=== PATIENT | male | born 1955 | race Caucasian/White ===

== ENCOUNTER 2018-11-18 07:25 | Day surgery (SDC) | payer BC ==
[2018-11-16 10:28] VITALS: BMI 22.1
[~2018-11-18 07:25] MED LIST: LIDOCAINE 1% 20 ML VIAL (10MG/ML) FOR IV START INTRADERMA PRN
[2018-11-18 07:46] VITALS: RESP 16; TEMP 97
[2018-11-18] MEDS: LACTATED RINGERS 1,000 ML IV SCH ×3 (07:55→08:56)
[2018-11-18] MEDS ORDERED: LIDOCAINE 1% 20 ML VIAL (10MG/ML) FOR IV START INTRADERMA ONE (07:55)
[2018-11-18] MEDS ORDERED: PROPOFOL 10 MG/ML 20 ML VIAL IV ONE (08:59)
--- NOTE | 2018-11-18 09:23 | P.PCN ---
Date of Procedure: 11/18/18 Procedure(s) Performed: Procedure: Total colonoscopy. Preoperative diagnosis: Screening for neoplasia, patient has history of polyps. Postoperative diagnosis: Sigmoid diverticulosis with no evidence of acute diverticulitis, strictures, polyps or cancer. Preparation: HalfLytely prep. Sedation: Was provided by anesthesia. Brief clinical history: The patient is a 63-year-old male who is scheduled for this evaluation for screening for neoplasia because of history of polyps. His last exam was around 5 years ago. The patient has no abdominal complaints, bleeding or anemia. Procedure: With the patient on his left lateral decubitus position and after informed consent and adequate sedation, the perianal area was inspected and it did not show any fissures or fistulas. There were no masses felt on digital rectal examination. The Olympus CFH 190L video colonoscope was then inserted in the rectum in the usual fashion and advanced to the cecum. There were multiple diverticular orifices seen scattered in the sigmoid but I saw no evidence of acute diverticulitis or strictures. No polyps or tumors were seen. I retroflexed the endoscope in the rectum before the endoscope was withdrawn. The patient tolerated the procedure well. Plan: The patient was reassured. Discussed dietary measures. He will follow up with you as planned and I recommended repeat exam in 5 years.
[2018-11-18 09:25] VITALS: BP 111/71; PULSE 76
== END 2018-11-18 09:59 | disposition home or self-care (01) ==
LOC: ORWHC2ENDO 07:25
DX: Z12.11 Encounter for screening for malignant neoplasm of colon (principal); K57.30 Diverticulosis of large intestine without perforation or abscess without bleeding; Z86.010 Personal history of colon polyps; K21.9 Gastro-esophageal reflux disease without esophagitis; Z88.0 Allergy status to penicillin
CPT/HCPCS: J2704; G0105; 45378

== ENCOUNTER → 2021-05-29 | Outpatient (CLI) | payer BC ==
--- NOTE | 2021-05-30 00:55 | MR ---
EXAMINATION TYPE: MR shoulder RT wo con DATE OF EXAM: 05/29/2021 COMPARISON: None HISTORY: Pain Multiplanar multiecho imaging of the right shoulder without contrast. The subscapularis tendon is intact. There is 2 x 1 cm area of triangular-shaped low signal at the ant erior and inferior glenoid labrum that could relate to some cartilaginous overgrowth or spur formatio n. The glenoid domingo appear intact. The humeral head is intact. There is some mild increased fluid si gnal at the AC joint. There is no significant spurring at the AC joint. I see no evidence of a defini te full-thickness tear of the supraspinatus tendon. There are small areas of increased signal at coul d relate to minimal tendinitis. The biceps tendon is intact. I see no focal bone destruction. IMPRESSION: There is some mild degenerative changes and edema at the AC joint. No evidence of full-thickness rota tor cuff tear. There is evidence for some minimal tendinitis. There is low signal area at the inferio r glenoid labrum that could be a large spur or cartilage overgrowth.
== END | disposition home or self-care (01) ==
LOC: RADMRIMAIN 18:34
PROVIDERS: ATTEND Orthopaedic Surgery
DX: M19.011 Primary osteoarthritis, right shoulder (principal); M77.9 Enthesopathy, unspecified

== ENCOUNTER → 2023-10-01 | Outpatient (CLI) | payer MEDICARE ==
--- NOTE | 2023-10-01 12:01 | MR ---
EXAMINATION TYPE: MR cervical spine wo con DATE OF EXAM: 10/01/2023 11:49 AM COMPARISON: NONE HISTORY: Shoulder and Arm Pain x2 years Multiplanar MultiSpin echo imaging of the cervical spine was performed. Comparison: none C2-C3: No evidence for degenerative disc disease. No disc bulge/herniation or protrusion. No Canal stenosis. Foramina are patent bilaterally. C3-C4: No evidence for degenerative disc disease. No disc bulge/herniation or protrusion. No Canal stenosis. Foramina are patent bilaterally. C4-C5: Mild disc desiccation posterior disc bulge. Minimal effacement ventral thecal sac. No evidence for herniation or central stenosis. Degenerative change of the cervical apophyseal joints with mild right-sided neural foraminal encroachment. C5-C6: No evidence for degenerative disc disease. No disc bulge/herniation or protrusion. No Canal stenosis. Foramina are patent bilaterally. C6-C7: Severe disc desiccation with degenerative endplate marrow change. Posterior disc bulge with mi ld effacement ventral thecal sac. No herniation or central stenosis. Mild bilateral neural foraminal encroachment. C7-T1: No evidence for degenerative disc disease. No disc bulge/herniation or protrusion. No Canal stenosis. Foramina are patent bilaterally. Cervical segments are intact. There is normal alignment. Cervical spinal cord is of normal signal. Craniovertebral junction relationships are within normal limits. IMPRESSION: 1. Mild disc desiccation and disc bulging as outlined above with right foraminal encroachment.
== END | disposition home or self-care (01) ==
LOC: RADMRIMAIN 11:01
PROVIDERS: ATTEND Orthopaedic Surgery
DX: M50.223 Other cervical disc displacement at C6-C7 level (principal)
CPT/HCPCS: 72141

== ENCOUNTER → 2023-11-02 | Outpatient (CLI) | payer MEDICARE, BC ==
--- NOTE | 2023-11-02 12:06 | CT ---
EXAMINATION TYPE: CT cervical spine wo con CT DLP: 321.2 mGycm, Automated exposure control for dose reduction was used. DATE OF EXAM: 11/02/2023 11:41 AM COMPARISON: Radiograph 10/30/2023 CLINICAL INDICATION:Male, 68 years old with history of M54.2 CERVICALGIA; PHH, c/o right shoulder delma n, no neck injury TECHNIQUE: Axial CT images from the skull base to the inferior aspect of T2 we obtained without intra venous contrast. Coronal and sagittal reformatted images were also reviewed. Contrast used: mL of , (if blank None) Oral contrast used: (if blank None) FINDINGS: Fracture: None. Osseous structures: Minimal osteophyte formation and facet and uncovertebral joint arthropathy throug hout the visualized spine. Vertebral alignment: Increased lordotic alignment of the cervical spine. Spinal canal/Neural Foramina: No evidence of significant spinal canal narrowing. Facet joint uncovert ebral joint arthropathy scattered throughout the cervical spine with varying degrees of neural forami nal stenosis. Neural foraminal stenosis worse on the right at C4-C5 with moderate to severe. Addition al neural foraminal stenosis throughout the cervical spine with at least moderate. Neck soft tissues: Prevertebral soft tissues are within normal limits. Other: The airway is patent. The lung apices are clear. IMPRESSION: 1. No evidence of cervical spine fracture. 2. Mild to moderate multilevel degenerative disc disease. No evidence for significant spinal canal st enosis. No foraminal stenosis worse on the right at C4-C5 with moderate to severe neural foraminal st enosis.
== END | disposition home or self-care (01) ==
LOC: RADCTMAIN 11:19
PROVIDERS: ATTEND Orthopaedic Surgery
DX: M50.30 Other cervical disc degeneration, unspecified cervical region (principal)
CPT/HCPCS: 72125

== ENCOUNTER → 2024-08-30 | Outpatient (CLI) | payer MEDICARE, BC | END | disposition home or self-care (01) | LOC: LABWHC1 07:02 | PROVIDERS: ATTEND Family Medicine | DX: J68.3 Other acute and subacute respiratory conditions due to chemicals, gases, fumes and vapors (principal) | CPT/HCPCS: 36415 ==